=== PATIENT | female | born 1970 | race Caucasian/White ===

== ENCOUNTER 2018-04-11 11:20 | Outpatient (CLI) | payer BC | END 2018-04-11 19:34 | disposition home or self-care (01) | LOC: SMA 11:20 | PROVIDERS: ATTEND Family Medicine | DX: Z12.31 Encounter for screening mammogram for malignant neoplasm of breast (principal) | CPT/HCPCS: 77067 ==

== ENCOUNTER 2020-03-04 14:58 | Outpatient (CLI) | payer OTHER | END 2020-03-04 21:01 | disposition home or self-care (01) | LOC: SMA 14:58 | PROVIDERS: ATTEND Family Medicine | DX: Z12.31 Encounter for screening mammogram for malignant neoplasm of breast (principal) | CPT/HCPCS: 77067 ==